=== PATIENT | female | born 1965 | race Caucasian/White ===

== ENCOUNTER 2018-08-29 15:37 | Emergency (ER) | payer BC ==
[2018-08-29 16:18] VITALS: BP 119/70
--- NOTE | 2018-08-29 17:49 | UC ---
Lower Extremity/Ankle HPI - HPI Summary HPI Summary: 52 y/o female presents to the urgent care c/o RT foot pain and swelling s/p slipping and bending her foot about 2 months ago. Since then she has flare ups of pain and swelling, specially when she walks or runs. This past week she started running and swelling exacerbated specially at the base of her Great toe. Pain is 4/10 w/ walking. Pt denies fever, Hx of Gout or arthritis, numbness or tingling sensation over the Rt foot, calf pain, SOB, chest pain, abdominal pain, N/V/D. She has not taken any medication to alleviate symptoms. - History of Current Complaint Chief Complaint: UCLowerExtremity Stated Complaint: FOOT INJURY Time Seen by Provider: 08/29/18 17:43 Hx Obtained From: Patient Hx Last Menstrual Period: ablation ?: No Onset/Duration: Sudden Onset, Lasting Weeks - 2 months, Still Present, Worse Since - yesterday Severity Initially: Moderate Severity Currently: Moderate Pain Intensity: 5 Pain Scale Used: 0-10 Numeric Aggravating Factor(s): Standing, Ambulation Alleviating Factor(s): Rest, OTC Meds Able to Bear Weight: Yes - Risk Factors Gout Risk Factors: Negative DVT Risk Factors: Negative Septic Arthritis Risk Factor: Negative - Allergies/Home Medications Allergies/Adverse Reactions: Allergies Allergy/AdvReac Type Severity Reaction Status Date / Time No Known Allergies Allergy Verified 08/29/18 16:18 Home Medications: Home Medications NK [No Home Medications Reported] 08/29/18 [History Confirmed 08/29/18] PMH/Surg Hx/FS Hx/Imm Hx Previously Healthy: Yes - Pt denies PMHX - Surgical History Surgical History: Yes Surgery Procedure, Year, and Place: c sections x3, rt shoulder - Family History Known Family History: Positive: None - Pt denies FMHX - Social History Occupation: Employed Full-time Lives: With Family Alcohol Use: None Substance Use Type: None Smoking Status (MU): Former Smoker When Did the Patient Quit Smoking/Using Tobacco: 27 years ago Review of Systems All Other Systems Reviewed And Are Negative: Yes Constitutional: Positive: Negative Skin: Positive: Negative Eyes: Positive: Negative ENT: Positive: Negative Respiratory: Positive: Negative Cardiovascular: Positive: Negative Gastrointestinal: Positive: Negative Genitourinary: Positive: Negative Motor: Positive: Negative Neurovascular: Positive: Negative Musculoskeletal: Positive: Decreased ROM - RT foot, Other: - RT foot pain s/p injury about 2 months ago Physical Exam - Summary Physical Exam Summary: Vital Signs Reviewed: Yes General : well developed, well nourished female w/o any apparent pain distress Eyes: Positive: Conjunctiva Clear - PERRLA, EOMI ENT: Positive: Normal ENT inspection, Hearing grossly normal, Pharynx normal, TMs normal Neck: Positive: Supple, Nontender, No Lymphadenopathy Respiratory: Positive: Chest non-tender, Lungs clear, Normal breath sounds, No respiratory distress Cardiovascular: Positive: RRR, No Murmur, Pulses Normal Abdomen Description: Positive: Nontender, No Organomegaly, Soft. Negative: CVA Tenderness (R), CVA Tenderness (L) Bowel Sounds: Positive: Present Musculoskeletal: Positive: Strength Intact, ROM Intact, No Edema, RT- Foot/Toes : Pt is able to bear weight but ambulate with mild limping. RT foot :No surface trauma, ecchymosis, erythema, lesions, ulcers or break in skin integrity. The R foot is without obvious asymmetry or deformity when compared to the L foot. No bony step-off, No tenderness to palpation over toes, point tenderness over the dorsal side of first metatarsal and sole at the same level w/ mild swelling , no tenderness of hindfoot, Decrease plantar/dorsiflexion, inversion/eversion due to pain. Distal motor and neurovascular status are intact. Neurological Exam: Normal Psychological Exam: Normal Skin Exam: Normal Triage Information Reviewed: Yes Vital Signs: Initial Vital Signs Temp 99.4 F 08/29/18 16:13 Pulse 70 08/29/18 16:13 Resp 12 08/29/18 16:13 BP 119/70 08/29/18 16:13 Pulse Ox 100 08/29/18 16:13 Lower Extremity Course/Dx - Course Course Of Treatment: 52 y/o female presents to the urgent care c/o RT foot pain and swelling s/p slipping and bending her foot about 2 months ago. Since then she has flare ups of pain and swelling, specially when she walks or runs. This past week she started running and swelling exacerbated specially at the base of her Great toe. Pain is 4/10 w/ walking. Pt denies fever, Hx of Gout or arthritis, numbness or tingling sensation over the Rt foot, calf pain, SOB, chest pain, abdominal pain, N/V/D. She has not taken any medication to alleviate symptoms. Hx obtained. RT foot X- ray ordered, Impression:There was no fracture, dislocation, soft tissue swelling or FB noted as per radiologist. Probably RT foot sprain or tendonitis. Pt's foot immobilized with vasiliy-bandage and given a post-op shoe to avoid flexion. Advised RICE, and take Ibuprofen PO for pain, advised not to wear high heels. If not improvement of symptoms to f/u with Orthopedic DR from sports Medicine referral for further evaluation and treatment. Pt understood and agreed with D/C instructions - Differential Dx/Diagnosis Differential Diagnosis/HQI/PQRI: Arthritis, Contusion, Dislocation, Fracture ( Closed), Sprain, Strain, Tendonitis Provider Diagnosis: Right foot sprain, Right foot pain Discharge - Sign-Out/Discharge Documenting (check all that apply): Patient Departure - D/c home All imaging exams completed and their final reports reviewed: Yes - Discharge Plan Condition: Stable Disposition: HOME Patient Education Materials: Foot Sprain (ED) Referrals: Gali Walker MD [Primary Care Provider] - 1 Week [facility] [Provider Group] - 3 Days Additional Instructions: 1-Please Ibuprofen PO 600mg q6-8hrs as directed after meals to alleviate pain and swelling. 2-Please apply ice, keep your foot immobilized with the Vasiliy bandage. Avoid strenuous exercise or standing for long periods of time 3- Please f/u with your PCP or Orthropedic DR from Sports Medicine in 3 days if not improvement of symptoms for further evaluation and treatment. - Billing Disposition and Condition Condition: STABLE Disposition: Home - Attestation Statements Provider Attestation: I was available for consult. This patient was seen by the JEFERSON. The patient was not presented to, seen by, or examined by me. -Lynette
== END 2018-08-29 18:15 | disposition home or self-care (01) ==
LOC: UCEAST 15:37
DX: S93.601A Unspecified sprain of right foot, initial encounter (principal); W01.0XXA Fall on same level from slipping, tripping and stumbling without subsequent striking against object, initial encounter; Y92.9 Unspecified place or not applicable; Z87.891 Personal history of nicotine dependence
CPT/HCPCS: 99212; G0463

== ENCOUNTER 2019-03-24 07:01 | Emergency (ER) | payer BC ==
[2019-03-24 07:10] VITALS: BP 122/72
--- NOTE | 2019-03-24 07:20 | UC ---
Minor Trauma HPI - HPI Summary HPI Summary: The patient is a 53-year-old female that fell off a piece of exercise equipment yesterday. She fell backwards landing on an outstretched right arm. She is complaining of right elbow pain. She is right handed. She also is complaining of some mild left buttocks pain. She denies any head or neck injury. - History of Current Complaint Chief Complaint: UCUpperExtremity Stated Complaint: ARM INJURY Time Seen by Provider: 03/24/19 07:14 Hx Obtained From: Patient Hx Last Menstrual Period: ablation Onset/Duration: Sudden Onset Onset Of Pain: Immediate Severity Initially: Severe Severity Currently: Severe Pain Intensity: 8 - with movement Pain Scale Used: 0-10 Numeric Mechanism Of Injury: Fall From A Standing Position Aggravating Factor(s): Movement Alleviating Factor(s): OTC Meds, Rest Body - Head: 1 - pain here 2 - pain here, unable to fully extend - Allergies/Home Medications Allergies/Adverse Reactions: Allergies Allergy/AdvReac Type Severity Reaction Status Date / Time No Known Allergies Allergy Verified 03/24/19 07:11 Home Medications: Home Medications Multivitamins/Minerals TAB* [Thera M Plus TAB*] 1 tab PO DAILY 03/24/19 [ History Confirmed 03/24/19] Naproxen Sodium [Aleve] 220 mg PO BID PRN 03/24/19 [History Confirmed 03/24/19] PMH/Surg Hx/FS Hx/Imm Hx Previously Healthy: Yes - Surgical History Surgical History: Yes Surgery Procedure, Year, and Place: c sections x3, rt shoulder - Family History Known Family History: Positive: None - Pt denies FMHX, Non-Contributory - Social History Alcohol Use: Occasionally Substance Use Type: None Smoking Status (MU): Former Smoker When Did the Patient Quit Smoking/Using Tobacco: 27 years ago Review of Systems All Other Systems Reviewed And Are Negative: Yes Constitutional: Positive: Negative Skin: Positive: Negative Eyes: Positive: Negative ENT: Positive: Negative Respiratory: Positive: Negative Cardiovascular: Positive: Negative Gastrointestinal: Positive: Negative Genitourinary: Positive: Negative Motor: Positive: Negative Neurovascular: Positive: Negative Musculoskeletal: Positive: Arthralgia - right elbow Neurological: Positive: Negative Psychological: Positive: Negative Physical Exam Triage Information Reviewed: Yes Appearance: Well-Appearing, No Pain Distress, Well-Nourished Vital Signs: Initial Vital Signs Temp 98.4 F 03/24/19 07:07 Pulse 64 03/24/19 07:07 Resp 16 03/24/19 07:07 BP 122/72 03/24/19 07:07 Pulse Ox 100 03/24/19 07:07 Vital Signs Reviewed: Yes Eyes: Positive: Conjunctiva Clear ENT: Positive: Hearing grossly normal. Negative: Nasal congestion, Trismus, Muffled voice, Hoarse voice Dental Exam: Normal Neck: Positive: Supple, Nontender Respiratory: Positive: Lungs clear, Normal breath sounds, No respiratory distress, No accessory muscle use Cardiovascular: Positive: RRR, No Murmur Musculoskeletal: Positive: Other: - see image: right shoulder -non tender with FROM, rigth wrist - NO snuff box tenderness or pain with axial compression of the thumb. minimal distal radius tenderness. right elbow- unable to fully extend, pain with supination Neurological Exam: Normal Psychological Exam: Normal Skin Exam: Normal Diagnostics - Radiology No standard instances Radiology Interpretation Completed By: Radiologist Summary of Radiographic Findings: REPORT AND IMPRESSION: #. Joint effusion and intra-articular fracture of the radial head with less than 0.1 cm impaction involving approximate 40% of the articular surface peripherally. Negative for additional fracture. Minor Trauma Course/Dx - Differential Dx/Diagnosis Provider Diagnosis: Right radial head fracture Discharge ED - Sign-Out/Discharge Documenting (check all that apply): Patient Departure All imaging exams completed and their final reports reviewed: Yes - Discharge Plan Condition: Stable Disposition: HOME Patient Education Materials: Elbow Fracture (ED) Referrals: Marc Sharpe MD [Medical Doctor] - As Soon As Possible Additional Instructions: sling aleve ice REPORT AND IMPRESSION: #. Joint effusion and intra-articular fracture of the radial head with less than 0.1 cm impaction involving approximate 40% of the articular surface peripherally. Negative for additional fracture. - Billing Disposition and Condition Condition: STABLE Disposition: Home
== END 2019-03-24 08:00 | disposition home or self-care (01) ==
LOC: UCEAST 07:01
DX: S52.121A Displaced fracture of head of right radius, initial encounter for closed fracture (principal); M25.421 Effusion, right elbow; Z87.891 Personal history of nicotine dependence; W18.39XA Other fall on same level, initial encounter; Y93.B1 Activity, exercise machines primarily for muscle strengthening; Y92.9 Unspecified place or not applicable
CPT/HCPCS: 99212; G0463